=== PATIENT | male | born 1985 | race African-American/Black ===

== ENCOUNTER 2022-07-21 22:33 | Emergency (ER) | payer MEDICAID ==
[~2022-07-21] VITALS: Ht 185.4 cm; Wt 68.0 kg
[2022-07-21 23:30] VITALS: BP 128/90
[2022-07-22] MEDS ORDERED: HYDROCODONE/ACETAMINOPHEN 5/325MG TABLET PO ONE (03:00)
[2022-07-22] MEDS ORDERED: BACITRACIN ZINC OINT UDPKT TOP ONE (03:15)
[2022-07-22] MEDS ORDERED: LIDOCAINE HCL/PF 1% 10 MG/ML 5ML VIAL INFIL ONE (03:15)
[2022-07-22] MEDS ORDERED: TETANUS, DIPHTHERIA, PERTUSSIS VAC/PF 0.5ML (>10YR OLD) IM ONE (03:15)
[2022-07-22] MEDS ORDERED: CLIN-194 MT (05:05)
== END 2022-07-22 06:42 | disposition home or self-care (01) ==
LOC: ER 22:33
DX: S61.411A Laceration without foreign body of right hand, initial encounter (principal); Z88.0 Allergy status to penicillin; Y04.0XXA Assault by unarmed brawl or fight, initial encounter; Y93.01 Activity, walking, marching and hiking; Y92.89 Other specified places as the place of occurrence of the external cause; Y99.8 Other external cause status
CPT/HCPCS: 12004; 73130; 90471; 90715; 99283; J3490; Z7610

== ENCOUNTER 2024-04-29 11:20 | Emergency (ER) | payer MEDICAID ==
[~2024-04-29] VITALS: Ht 188 cm; Wt 82.0 kg
[~2024-04-29 11:20] MED LIST: CLIN-194 MT
[2024-04-29 11:38] VITALS: O2SAT 99
[2024-04-29 12:49] LABS: BASOPHILS % 0.4 % (0.0-2.0); EOSINOPHILS % 0.1 % (0.0-5.0); HEMATOCRIT. 46.1 % (42.0-52.0); HEMOGLOBIN. 15.1 g/dL (14.0-18.0); LYMPHOCYTES % 10.6 % (20.0-50.0); MEAN CORPUSCULAR HEMOGLOBIN 30.7 pg (28.0-32.0); MEAN CORPUSCULAR HGB CONC 32.8 g/dL (31.0-37.0); MEAN CORPUSCULAR VOLUME 93.4 fL (80.0-94.0); MEAN PLATELET VOLUME 9.8 fl (7.4-10.4); NEUTROPHILS % 78.9 % (40.0-76.0); PLATELET 227 x1000/uL (130-400); RED BLOOD CELL COUNT 4.93 mill/uL (4.7-6.1); WHITE BLOOD COUNT 11.6 x1000/uL (4.5-11.0)
[2024-04-29 12:54] LABS: CHLORIDE 102 mEq/L (98-107); POTASSIUM 3.5 mEq/L (3.5-5.1); SODIUM 138 mEq/L (136-145)
[2024-04-29 12:55] LABS: CARBON DIOXIDE 26 mEq/L (21-32)
[2024-04-29 12:56] LABS: CALCIUM 10.1 mg/dL (8.7-10.4)
[2024-04-29 13:00] LABS: CREATININE 0.8 mg/dL (0.6-1.3); GLUCOSE 87 mg/dL (70-105); UREA NITROGEN BLOOD 8 mg/dL (9-23)
[2024-04-29 13:08] LABS: PROTHROMBIN TIME 11.5 sec (9.6-11.0)
[2024-04-29 13:13] LABS: TROPONIN I HIGH SENSITIVITY < 4 ng/L (3.0-53)
[2024-04-29] MEDS ORDERED: TRANEXAMIC ACID 1,000MG/10ML IV ONE (13:15)
[2024-04-29] MEDS: LEVETIRACETAM 1000MG PREMIX 100 ML IV ONE (13:22)
[2024-04-29 13:41] VITALS: BP 123/84; PULSE 71; RESP 16; TEMP 98.2
[2024-04-29] MEDS: TRANEXAMIC ACID 1000MG PREMIX 100 ML IV NR (13:53)
== END 2024-04-29 14:10 | disposition short-term general hospital (02) ==
LOC: ER 11:40
DX: S02.119A Unspecified fracture of occiput, initial encounter for closed fracture (principal); I60.9 Nontraumatic subarachnoid hemorrhage, unspecified; Z88.0 Allergy status to penicillin; Y04.0XXA Assault by unarmed brawl or fight, initial encounter; Y93.89 Activity, other specified; Y92.89 Other specified places as the place of occurrence of the external cause; Y99.8 Other external cause status
CPT/HCPCS: 80048; 85025; 85610; 86850; 86900; 86901; 84484; 36415; 70450; 70486; 96367; 96365; 99291; J1953; Z7610 ×2

== ENCOUNTER 2024-12-07 20:02 | Emergency (ER) | payer MEDICAID ==
[~2024-12-07] VITALS: Ht 188 cm; Wt 81.0 kg
[2024-12-07 20:16] VITALS: TEMP 97.7; O2SAT 100
[2024-12-07 23:37] VITALS: BP 134/74; PULSE 95; RESP 18
[2024-12-07] MEDS: MAGNESIUM/ALUMINUM HYDROXIDE/SIMETHICONE 30ML UDC PO ONE (23:37)
[2024-12-07] MEDS: KETOROLAC 30MG/ML VIAL IM ONE (23:37)
[2024-12-07] MEDS: ONDANSETRON 4MG ODT PO ONE (23:37)
[2024-12-08 00:27] LABS: CLARITY URINE CLEAR (CLEAR); COLOR URINE DARK YELLOW (YELLOW); GLUCOSE URINE NEGATIVE (NEGATIVE); KETONES URINE TRACE (NEGATIVE); LEUKOCYTE ESTERASE URINE NEGATIVE (NEGATIVE); NITRITE URINE NEGATIVE (NEGATIVE); OCCULT BLOOD URINE NEGATIVE (NEGATIVE); PH URINE 5.5 (4.5-8.0); PROTEIN URINE 1+ (NEGATIVE); SPECIFIC GRAVITY URINE 1.033 (1.005-1.030)
[2024-12-08 00:45] LABS: BASOPHILS % 0.8 % (0.0-2.0); EOSINOPHILS % 0.3 % (0.0-5.0); HEMATOCRIT. 36.4 % (42.0-52.0); HEMOGLOBIN. 12.5 g/dL (14.0-18.0); LYMPHOCYTES % 12.5 % (20.0-50.0); MEAN CORPUSCULAR HEMOGLOBIN 31.5 pg (28.0-32.0); MEAN CORPUSCULAR HGB CONC 34.3 g/dL (31.0-37.0); MEAN CORPUSCULAR VOLUME 91.9 fL (80.0-94.0); MEAN PLATELET VOLUME 9.9 fl (7.4-10.4); MONOCYTES % 10.9 % (2.0-8.0); NEUTROPHILS % 75.5 % (40.0-76.0); PLATELET 183 x1000/uL (130-400); RED BLOOD CELL COUNT 3.96 mill/uL (4.7-6.1); RED CELL DISTRIBUTION WIDTH 14.1 % (11.6-14.6); WHITE BLOOD COUNT 5.4 x1000/uL (4.5-11.0)
[2024-12-08 00:49] LABS: CHLORIDE 106 mEq/L (98-107); POTASSIUM 3.8 mEq/L (3.5-5.1); SODIUM 139 mEq/L (136-145)
[2024-12-08 00:50] LABS: CARBON DIOXIDE 23 mEq/L (21-32)
[2024-12-08 00:51] LABS: CALCIUM 8.9 mg/dL (8.7-10.4)
[2024-12-08 00:56] LABS: CREATININE 1.1 mg/dL (0.6-1.3); GLUCOSE 112 mg/dL (70-105); UREA NITROGEN BLOOD 9 mg/dL (9-23)
[2024-12-08 00:57] LABS: ALANINE AMINOTRANSFERASE 12 IU/L (10-49); ASPARTATE AMINOTRANSFERASE 18 IU/L (<34)
[2024-12-08 00:58] LABS: ALBUMIN 4.2 g/dL (3.2-4.8); BILIRUBIN TOTAL 0.4 mg/dL (0.1-1.0); PROTEIN TOTAL 7.1 g/dL (6.0-8.3)
[2024-12-08 01:00] LABS: ETHANOL BLOOD < 10 mg/dL (<10)
[2024-12-08] MEDS ORDERED: TOPUD MT (02:10)
[2024-12-08] MEDS ORDERED: TUSSL MT (02:10)
[2024-12-08 05:18] LABS: BACTERIA URINE NONE SEEN; SQUAMOUS EPITHELIAL CELL URINE NONE SEEN /lpf (RARE/1+); WBC URINE 0-2 /hpf (0-2)
[2024-12-08 05:19] LABS: RBC URINE 0-2 /hpf (0-2)
== END 2024-12-08 02:40 | disposition home or self-care (01) ==
LOC: ER 20:02
DX: B34.9 Viral infection, unspecified (principal); F31.9 Bipolar disorder, unspecified; Z88.0 Allergy status to penicillin; Z20.822 Contact with and (suspected) exposure to COVID-19
CPT/HCPCS: 80053; 81003; 80320; 83690; 85025; 87804 ×2; 36415; 71045; 96372; 99284; 87426; Q0162; J1885; G0480

== ENCOUNTER 2025-01-19 21:31 | Emergency (ER) | payer MEDICAID ==
[~2025-01-19] VITALS: Ht 182.9 cm; Wt 89.0 kg
[~2025-01-19 21:31] MED LIST changes: +TOPUD MT; +TUSSL MT
[2025-01-19 21:46] VITALS: O2SAT 100
[2025-01-19] MEDS ORDERED: ABIL10 MT (23:11)
[2025-01-19] MEDS ORDERED: BO1 TP (23:11)
[2025-01-19 23:18] VITALS: BP 108/65; PULSE 71; RESP 16; TEMP 36.8; O2SAT 100
== END 2025-01-19 23:23 | disposition home or self-care (01) ==
LOC: ER 21:31
DX: R60.9 Edema, unspecified (principal); Z79.899 Other long term (current) drug therapy; Z76.0 Encounter for issue of repeat prescription; Z59.00 Homelessness unspecified; Z88.0 Allergy status to penicillin
CPT/HCPCS: 99281; 99283